=== PATIENT | female | born 1960 | race Caucasian/White ===

== ENCOUNTER 2018-08-16 17:01 | Observation (INO) | payer BC ==
[2018-08-16] MEDS ORDERED: methylPREDNISolone SOD SUCCI 125 MG/2 ML VIAL IV STA (17:15)
[2018-08-16] MEDS ORDERED: MAGNESIUM SULFATE-D5W PMX 1 GM in DEXTROSE/WATER 1 100ML.BAG IVPB STA (17:15)
[2018-08-16] MEDS ORDERED: IPRATROPIUM-ALBUTEROL 3 ML NEB INHALATION STA (17:15)
[2018-08-16] MEDS ORDERED: SODIUM CHLORIDE 0.9% 1,000 ML IV ONE (17:16)
[2018-08-16 17:59] LABS: VBG PH 7.43 (7.31-7.41)
[2018-08-16] MEDS: SODIUM CHLORIDE 0.9% 1,000 ML IV SCH (18:02)
--- NOTE | 2018-08-16 18:08 | ED ---
SOB HPI - General Chief Complaint: Shortness of Breath Stated Complaint: SOB Time Seen by Provider: 08/16/18 17:10 Source: patient, RN notes reviewed, old records reviewed Mode of arrival: ambulatory Limitations: no limitations - History of Present Illness Initial Comments: Patient is a 57-year-old female presents emergency department today with acute r espiratory distress. Patient was sent in by Dr. Fletcher for admission. Apparently Patient cannot take oral steroids. She frequently is admitted for acute asthma exacerbations. Patient has audible wheezing noted upon while entering the exam room. She states her symptoms have been going on for 3 days. She denies any fever or chills. She states that she's had a nonproductive cough. Patient has had no associated chest pain, denies any nausea or vomiting. - Related Data Home Medications Medication Instructions Recorded Confirmed Albuterol Inhaler [Ventolin Hfa 1 - 2 puff INHALATION RT-Q6H PRN 08/16/18 08/16/18 Inhaler] Albuterol Nebulized [Ventolin 2.5 mg INHALATION RT-QID PRN 08/16/18 08/16/18 Nebulized] Ergocalciferol (Vitamin D2) 50,000 unit PO Q7D 08/16/18 08/16/18 [Vitamin D2] Fexofenadine HCl [Rachel Allergy] 180 mg PO DAILY 08/16/18 08/16/18 Fluticasone/Salmeterol [Advair 1 puff INHALATION RT-BID 08/16/18 08/16/18 250-50 Diskus] Lisinopril [Zestril] 20 mg PO DAILY 08/16/18 08/16/18 Montelukast [Singulair] 10 mg PO DAILY 08/16/18 08/16/18 Allergies Allergy/AdvReac Type Severity Reaction Status Date / Time codeine Allergy Unknown Verified 08/16/18 18:04 latex Allergy Swelling Verified 08/16/18 18:04 Penicillins Allergy Unknown Verified 08/16/18 18:04 Sulfa (Sulfonamide Allergy Unknown Verified 08/16/18 18:04 Antibiotics) prednisone AdvReac Unknown Verified 08/16/18 18:04 Review of Systems ROS Statement: Those systems with pertinent positive or pertinent negative responses have been documented in the HPI. ROS Other: All systems not noted in ROS Statement are negative. Past Medical History Past Medical History: Asthma Additional Past Medical History / Comment(s): pancreatitis History of Any Multi-Drug Resistant Organisms: None Reported Past Surgical History: No Surgical Hx Reported Past Psychological History: No Psychological Hx Reported Smoking Status: Never smoker Past Alcohol Use History: None Reported Past Drug Use History: None Reported General Exam - General Exam Comments Initial Comments: 57-year-old female. Alert and oriented. Respiratory distress, audible wheezing noted Limitations: no limitations General appearance: alert, in no apparent distress Head exam: Present: atraumatic, normocephalic, normal inspection Eye exam: Present: normal appearance, PERRL, EOMI. Absent: scleral icterus, conjunctival injection, periorbital swelling ENT exam: Present: normal exam, mucous membranes moist Neck exam: Present: normal inspection. Absent: tenderness, meningismus, lymphadenopathy Respiratory exam: Present: wheezes (Audible wheezing from the entry of the room.). Absent: normal lung sounds bilaterally, respiratory distress, rales, rhonchi, stridor Cardiovascular Exam: Present: regular rate, normal rhythm, normal heart sounds. Absent: systolic murmur, diastolic murmur, rubs, gallop, clicks GI/Abdominal exam: Present: soft, normal bowel sounds. Absent: distended, tenderness, guarding, rebound, rigid Extremities exam: Present: normal inspection, full ROM, normal capillary refill. Absent: tenderness, pedal edema, joint swelling, calf tenderness Back exam: Present: normal inspection Neurological exam: Present: alert, oriented X3, CN II-XII intact Course Vital Signs 08/16/18 08/16/18 08/16/18 17:01 17:24 17:38 Temperature 97.9 F Pulse Rate 78 77 73 Respiratory 22 Rate Blood Pressure 129/77 O2 Sat by Pulse 98 Oximetry 08/16/18 18:00 Temperature Pulse Rate 91 Respiratory 24 Rate Blood Pressure 135/81 O2 Sat by Pulse 94 L Oximetry - Reevaluation(s) Reevaluation #1: 08/16/18 18:45 Patient is improved after 3 to continue his DuoNeb treatments and Solu-Medrol. Patient continues to have some wheezing. Gillian the Patient at this time. Medical Decision Making - Medical Decision Making 57-year-old male presents to ED with complaints of difficulty in breathing, a sthma exacerbation for 3 days. She has audible wheezing noted on exam. Patient was given a stat hour long DuoNeb treatment. Started on steroids and magnesium. She does have improvement after reevaluation but continues to wheeze. Patient's wrist torus status upon arrival will admit her with consult to Dr. Fletcher. - Lab Data Result diagrams: 08/16/18 17:40 08/16/18 17:40 Lab Results 08/16/18 08/16/18 08/16/18 Range/Units 17:40 17:40 17:40 WBC 8.3 (3.8-10.6) k/uL RBC 5.23 (3.80-5.40) m/uL Hgb 16.0 (11.4-16.0) gm/dL Hct 48.8 H (34.0-46.0) % MCV 93.3 (80.0-100.0) fL MCH 30.5 (25.0-35.0) pg MCHC 32.7 (31.0-37.0) g/dL RDW 13.5 (11.5-15.5) % Plt Count 263 (150-450) k/uL VBG pH 7.43 H (7.31-7.41) VBG pCO2 33 L (37-51) mmHg VBG HCO3 21 L (24-28) mmol/L Sodium 141 (137-145) mmol/L Potassium 4.9 (3.5-5.1) mmol/L Chloride 110 H (98-107) mmol/L Carbon Dioxide 20 L (22-30) mmol/L Anion Gap 11 mmol/L BUN 19 H (7-17) mg/dL Creatinine 0.69 (0.52-1.04) mg/dL Est GFR (CKD-EPI)AfAm >90 (>60 ml/min/1.73 sqM) Est GFR (CKD-EPI)NonAf >90 (>60 ml/min/1.73 sqM) Glucose 80 (74-99) mg/dL Calcium 9.6 (8.4-10.2) mg/dL Magnesium 2.3 (1.6-2.3) mg/dL Total Bilirubin 0.6 (0.2-1.3) mg/dL AST 37 H (14-36) U/L ALT 24 (9-52) U/L Alkaline Phosphatase 66 (38-126) U/L Total Protein 7.9 (6.3-8.2) g/dL Albumin 4.4 (3.5-5.0) g/dL Disposition Clinical Impression: Asthma exacerbation Disposition: ADMITTED IP TO THIS HOSP Condition: Stable Is patient prescribed a controlled substance at d/c from ED?: No Referrals: Pablo Mar MD [Primary Care Provider] - 1-2 days Time of Disposition: 18:46
[2018-08-16 18:11] LABS: ALT 24 U/L (9-52); AST 37 U/L (14-36); Albumin 4.4 g/dL (3.5-5.0); Alkaline Phosphatase 66 U/L (38-126); Anion Gap 11 mmol/L; Blood Urea Nitrogen 19 mg/dL (7-17); Calcium 9.6 mg/dL (8.4-10.2); Carbon Dioxide 20 mmol/L (22-30); Chloride 110 mmol/L (98-107); Glucose 80 mg/dL (74-99); Magnesium 2.3 mg/dL (1.6-2.3); Potassium 4.9 mmol/L (3.5-5.1); Sodium 141 mmol/L (137-145); Total Bilirubin 0.6 mg/dL (0.2-1.3); Total Protein 7.9 g/dL (6.3-8.2)
--- NOTE | 2018-08-16 18:23 | XR ---
EXAMINATION TYPE: XR chest 2V DATE OF EXAM: 08/16/2018 COMPARISON: 06/15/2013 HISTORY: Short of breath TECHNIQUE: Frontal and lateral views of the chest are obtained. FINDINGS: There is some elevation of the right diaphragm with linear density in the right lower lobe . There is no heart failure. Heart size is normal. There are chest leads. IMPRESSION: Minimal subsegmental atelectasis. There is clearing of some atelectasis left lung base c ompared to old exam. Normal heart.
[2018-08-16 18:27] LABS: HCT 48.8 % (34.0-46.0); MCH 30.5 pg (25.0-35.0); MCHC 32.7 g/dL (31.0-37.0); MCV 93.3 fL (80.0-100.0); Mean Platelet Volume 6.7; Platelet Count 263 k/uL (150-450); RBC 5.23 m/uL (3.80-5.40); RDW 13.5 % (11.5-15.5); WBC 8.3 k/uL (3.8-10.6)
[2018-08-16] MEDS ORDERED: ALBUTEROL NEBULIZED 2.5 MG/3 ML INHALATION PRN (18:49)
[2018-08-16 19:27] LABS: Eosinophils # (M) 0.75 k/uL (0-0.7); Lymphocytes # (M) 2.57 k/uL (1.0-4.8); Monocytes # (M) 0.42 k/uL (0-1.0); Neutrophils # (M) 4.57 k/uL (1.3-7.7); Neutrophils % (M) 55 %; Nucleated Red Blood Cells 0 /100 WBC (0-0); Total Cells Counted 100
[2018-08-16 19:29] LABS: Poikilocytosis (M) Present
[2018-08-16 21:01] LABS: Glucose,Whole Blood 112 mg/dL (75-99)
[2018-08-16] MEDS: SYMBICORT 80-4.5 MCG INHALER INHALATION SCH (21:08)
[2018-08-16] MEDS: INSULIN ASPART (NovoLOG) 100 UNIT/ML VIAL SQ SCH (21:17)
[2018-08-16] MEDS: guaiFENesin 600 MG TABLET.ER PO SCH (21:47)
[2018-08-16 22:07] VITALS: BMI 32.5
[2018-08-16] MEDS: methylPREDNISolone SOD SUCCI 125 MG/2 ML VIAL IV SCH (23:35)
[2018-08-17] MEDS: SODIUM CHLORIDE 0.9% 1,000 ML IV SCH ×2 (00:17→12:34)
[2018-08-17] MEDS: methylPREDNISolone SOD SUCCI 125 MG/2 ML VIAL IV SCH ×3 (06:12→17:14)
[2018-08-17 07:00] LABS: Glucose,Whole Blood 181 mg/dL (75-99)
[2018-08-17] MEDS: guaiFENesin 600 MG TABLET.ER PO SCH ×2 (07:25→21:26)
[2018-08-17] MEDS: LISINOPRIL 20 MG TAB PO SCH (07:25)
[2018-08-17] MEDS: INSULIN ASPART (NovoLOG) 100 UNIT/ML VIAL SQ SCH ×4 (07:26→21:26)
[2018-08-17] MEDS: MONTELUKAST 10 MG TAB PO SCH (07:26)
[2018-08-17] MEDS: LORATADINE 10 MG TAB PO SCH (07:26)
[2018-08-17] MEDS: IPRATROPIUM-ALBUTEROL 3 ML NEB INHALATION PRN ×2 (08:15→11:27)
[2018-08-17] MEDS: SYMBICORT 80-4.5 MCG INHALER INHALATION SCH ×2 (08:15→19:55)
[2018-08-17 11:43] LABS: Glucose,Whole Blood 98 mg/dL (75-99)
--- NOTE | 2018-08-17 13:38 | P.CNPUL ---
History of Present Illness Consult date: 08/17/18 Requesting physician: Pablo Mar Reason for consult: dyspnea, asthma Chief complaint: Shortness of breath, chest tightness, wheezing History of present illness: This is a very pleasant 57-year-old female patient who follows with Dr. Patel as her primary care physician. She has a history of hypertension, pancreatitis. She is a lifelong nonsmoker. She follows with Dr. Fletcher in our office for moderate persistent chronic bronchial asthma mostly allergen related. She presented here to the emergency room yesterday from our office with complaints of increasing shortness of breath, chest tightness and wheezing. She is intolerant to oral prednisone due to her pancreatitis. She is maintained on Advair, Singulair, albuterol, Rachel. She feels her asthma is triggered by spring ALLERGIES. She is seen today in consultation on the regular medical floor. She is awake and alert in no acute distress. She is still quite bronchospastic and wheezy. Dyspneic with minimal exertion. She is maintaining good O2 saturations in the 90s on 3 L/m per nasal cannula. She's been afebrile. Hemodynamically stable. Chest x-ray shows minimal subsegmental atelectasis otherwise no clear evidence of pneumonia or heart failure. White count 8.3. Hemoglobin 16.0. Bicarb 20, creatinine 0.69. She's been initiated on DuoNeb inhalations, IV Solu-Medrol, Symbicort and Claritin. Review of Systems REVIEW OF SYSTEMS: CONSTITUTIONAL: Denies any recent significant weight loss or weight gain. EYES: Denies change in vision. EARS, NOSE, MOUTH, THROAT: Denies headaches, denies sore throat. CARDIOVASCULAR: Denies chest pain, palpitations or syncopal episodes. RESPIRATORY: Positive for shortness of breath, cough, congestion no hemoptysis. GASTROINTESTINAL: Slight nausea. Denies change in appetite, denies abdominal pain GENITOURINARY: Denies hematuria, denies infections. MUSKULOSKELETAL: Denies pain, denies swelling. INTEGUMENTARY: Denies rash, denies eczema. NEUROLOGICAL: Denies recent memory loss, no recent seizure activity. PSYCHIATRIC: Denies anxiety, denies depression. HEMATOLOGIC/LYMPHATIC: Denies anemia, denies enlarged lymph nodes. Past Medical History Past Medical History: Asthma, Hypertension Additional Past Medical History / Comment(s): pancreatitis History of Any Multi-Drug Resistant Organisms: None Reported Past Surgical History: No Surgical Hx Reported Past Psychological History: No Psychological Hx Reported Smoking Status: Never smoker Past Alcohol Use History: None Reported Additional Past Alcohol Use History / Comment(s): Patient is a lifelong nonsmoker. Past Drug Use History: None Reported - Past Family History Father Family Medical History: CVA/TIA Mother Family Medical History: CVA/TIA Medications and Allergies Home Medications Medication Instructions Recorded Confirmed Type Albuterol Inhaler [Ventolin Hfa 1 - 2 puff INHALATION RT-Q6H PRN 08/16/18 08/16/18 History Inhaler] Albuterol Nebulized [Ventolin 2.5 mg INHALATION RT-QID PRN 08/16/18 08/16/18 History Nebulized] Ergocalciferol (Vitamin D2) 50,000 unit PO Q7D 08/16/18 08/16/18 History [Vitamin D2] Fexofenadine HCl [Rachel Allergy] 180 mg PO DAILY 08/16/18 08/16/18 History Fluticasone/Salmeterol [Advair 1 puff INHALATION RT-BID 08/16/18 08/16/18 History 250-50 Diskus] Lisinopril [Zestril] 20 mg PO DAILY 08/16/18 08/16/18 History Montelukast [Singulair] 10 mg PO DAILY 08/16/18 08/16/18 History Allergies Allergy/AdvReac Type Severity Reaction Status Date / Time codeine Allergy Unknown Verified 08/16/18 18:04 latex Allergy Swelling Verified 08/16/18 18:04 Penicillins Allergy Unknown Verified 08/16/18 18:04 Sulfa (Sulfonamide Allergy Unknown Verified 08/16/18 18:04 Antibiotics) prednisone AdvReac Unknown Verified 08/16/18 18:04 Physical Exam Vitals: Vital Signs Temp Pulse Pulse Resp BP BP Pulse Ox 08/17/18 11:40 88 08/17/18 11:29 84 08/17/18 08:32 92 08/17/18 08:20 88 08/17/18 04:37 97.6 F 81 18 136/84 94 L 08/16/18 21:06 97.7 F 77 17 148/93 95 08/16/18 20:31 97.8 F 81 18 119/72 97 08/16/18 19:00 97.8 F 81 18 123/73 96 08/16/18 18:00 91 24 135/81 94 L 08/16/18 17:38 73 08/16/18 17:24 77 08/16/18 17:01 97.9 F 78 22 129/77 98 Intake and Output 08/16/18 08/17/18 08/17/18 22:59 06:59 14:59 Other: # Voids 2 3 Weight 81.5 kg GENERAL EXAM: Alert, active, comfortable in no apparent distress. HEAD: Face is flushed. Normocephalic. EYES: Normal reaction of pupils, equal size. NOSE: Clear with pink turbinates. THROAT: No erythema or exudates. NECK: No masses, no JVD. CHEST: No chest wall deformity. LUNGS: Equal air entry with bilateral end expiratory wheeze CVS: S1 and S2 normal with no audible murmur, regular rhythm. ABDOMEN: No hepatosplenomegaly, normal bowel sounds, no guarding or rigidity. SPINE: No scoliosis or deformity SKIN: No rashes CENTRAL NERVOUS SYSTEM: No focal deficits, tone is normal in all 4 extremities. EXTREMITIES: There is no peripheral edema. No clubbing, no cyanosis. Peripheral pulses are intact. Results - Laboratory Findings CBC and BMP: 08/16/18 17:40 08/16/18 17:40 Abnormal lab findings: Abnormal Labs 08/16/18 08/16/18 08/16/18 17:40 17:40 17:40 Hct 48.8 H Eosinophils # (Manual) 0.75 H VBG pH 7.43 H VBG pCO2 33 L VBG HCO3 21 L Chloride 110 H Carbon Dioxide 20 L BUN 19 H POC Glucose (mg/dL) AST 37 H 08/16/18 08/17/18 21:00 06:57 Hct Eosinophils # (Manual) VBG pH VBG pCO2 VBG HCO3 Chloride Carbon Dioxide BUN POC Glucose (mg/dL) 112 H 181 H AST - Diagnostic Findings Chest x-ray: image reviewed Assessment and Plan Assessment: Impression: #1 Acute exacerbation of moderate persistent chronic bronchial asthma. #2 Hypertension. #3 History of pancreatitis exacerbated by oral prednisone. Plan: The patient was seen and evaluated by Dr. Montoya. Chest x-ray and labs reviewed. We'll continue the current treatment plan including IV Solu-Medrol, DuoNeb inhalations, Symbicort, Claritin. We will increase her activity as tolerated. We'll continue to follow and make further recommendations based on her clinical status. I, the cosigning physician, performed a history & physical examination of the patient. Lungs sounds with bilateral end expiratory wheeze, diminished. Maintaining good O2 saturations in the 90s on 3 L/m per nasal cannula. I discussed the assessment and plan of care with my nurse practitioner, Caroline Schwartz. I attest to the above note as dictated by her. Time with Patient: Greater than 30
[2018-08-17] MEDS: IPRATROPIUM-ALBUTEROL 3 ML NEB INHALATION SCH ×2 (15:51→19:55)
--- NOTE | 2018-08-17 16:07 | P.HPIM ---
History of Present Illness H&P Date: 08/17/18 Chief Complaint: Difficulty in breathing This is a 57-year-old female patient of Dr. Mar and Dr. Fletcher with past medical history of hypertension, seasonal ALLERGIES, moderate persistent asthma. Patient has had symptoms for the last 3 days with shortness of breath and cough. She has also been having wheezing. Patient has significant anxiety and history of PTSD after hospitalization in the past. She has unable to tolerate any oral steroids. Patient came into [facility] emergency center for evaluation. She was afebrile, heart rate 70s, blood pressure 129/77 pulse ox 90% on room air. White count was normal at 8.3, hemoglobin 16.0. Creatinine 0.69, AST 37. Venous blood gas showed a pH of 7.43, pCO2 33, bicarb 21. Chest x-ray shows minimal subsegmental atelectasis. Clearing of some atelectasis of left lung base compared to old exam from 2014. Patient was started on IV Solu-Medrol, 1 L of IV fluids magnesium replacement and DuoNeb treatments [facility] Consult has been requested with pulmonary medicine. Review of Systems All systems: negative Constitutional: Denies anorexia, Denies chills, Denies fatigue, Denies fever, Denies lethargy, Denies poor appetite, Denies weakness, Denies weight loss Eyes: denies blurred vision, denies pain Ears, nose, mouth and throat: Denies headache, Denies sore throat Cardiovascular: Reports decreased exercise tolerance, Reports dyspnea on exertion, Denies chest pain, Denies edema, Denies leg edema, Denies lightheadedness, Denies orthopnea, Denies shortness of breath, Denies syncope Respiratory: Reports cough, Reports cough with sputum, Reports dyspnea, Reports wheezing, Denies excessive sputum, Denies hemoptysis, Denies home oxygen Gastrointestinal: Denies abdominal pain, Denies diarrhea, Denies loss of appetite, Denies nausea, Denies vomiting Genitourinary: Denies dysuria, Denies hematuria Musculoskeletal: Denies frequent falls, Denies gait dysfunction, Denies muscle weakness, Denies myalgias Integumentary: Denies pruritus, Denies rash, Denies wounds Neurological: Denies aphasia, Denies change in mentation, Denies change in speech, Denies headaches, Denies numbness, Denies seizures, Denies vertigo, Denies weakness Psychiatric: Denies anxiety, Denies depression Endocrine: Denies fatigue, Denies weight change Past Medical History Past Medical History: Asthma, Hypertension Additional Past Medical History / Comment(s): pancreatitis History of Any Multi-Drug Resistant Organisms: None Reported Past Surgical History: No Surgical Hx Reported Past Psychological History: No Psychological Hx Reported Smoking Status: Never smoker Past Alcohol Use History: None Reported Additional Past Alcohol Use History / Comment(s): Patient is a lifelong nonsmoker. Past Drug Use History: None Reported - Past Family History Father Family Medical History: CVA/TIA Mother Family Medical History: CVA/TIA Medications and Allergies Home Medications Medication Instructions Recorded Confirmed Type Albuterol Inhaler [Ventolin Hfa 1 - 2 puff INHALATION RT-Q6H PRN 08/16/18 08/16/18 History Inhaler] Albuterol Nebulized [Ventolin 2.5 mg INHALATION RT-QID PRN 08/16/18 08/16/18 History Nebulized] Ergocalciferol (Vitamin D2) 50,000 unit PO Q7D 08/16/18 08/16/18 History [Vitamin D2] Fexofenadine HCl [Rachel Allergy] 180 mg PO DAILY 08/16/18 08/16/18 History Fluticasone/Salmeterol [Advair 1 puff INHALATION RT-BID 08/16/18 08/16/18 History 250-50 Diskus] Lisinopril [Zestril] 20 mg PO DAILY 08/16/18 08/16/18 History Montelukast [Singulair] 10 mg PO DAILY 08/16/18 08/16/18 History Allergies Allergy/AdvReac Type Severity Reaction Status Date / Time codeine Allergy Unknown Verified 08/16/18 18:04 latex Allergy Swelling Verified 08/16/18 18:04 Penicillins Allergy Unknown Verified 08/16/18 18:04 Sulfa (Sulfonamide Allergy Unknown Verified 08/16/18 18:04 Antibiotics) prednisone AdvReac Unknown Verified 08/16/18 18:04 Physical Exam Vitals: Vital Signs Temp Pulse Pulse Resp BP BP Pulse Ox 08/17/18 08:32 92 08/17/18 08:20 88 05/07/19 04:37 97.6 F 81 18 136/84 94 L 08/16/18 21:06 97.7 F 77 17 148/93 95 08/16/18 20:31 97.8 F 81 18 119/72 97 08/16/18 19:00 97.8 F 81 18 123/73 96 08/16/18 18:00 91 24 135/81 94 L 08/16/18 17:38 73 08/16/18 17:24 77 08/16/18 17:01 97.9 F 78 22 129/77 98 Intake and Output 08/16/18 08/17/18 08/17/18 22:59 06:59 14:59 Other: # Voids 2 3 Weight 81.5 kg Gen: This is a 57-year-old female. She is resting in bed and appears to be comfortable and in no acute distress. HEENT: Head is atraumatic, normocephalic. Pupils equal, round. Sclerae is anicteric. NECK: Supple. No JVD. No lymphadenopathy. No thyromegaly. LUNGS: Bilateral expiratory wheeze. No intercostal retractions. HEART: Regular rate and rhythm. No murmur. ABDOMEN: Soft. Bowel sounds are present. No masses. No tenderness. EXTREMITIES: No pedal edema. No calf tenderness. NEUROLOGICAL: Patient is awake, alert and oriented x3. Cranial nerves 2 through 12 are grossly intact. Results CBC & Chem 7: 08/16/18 17:40 08/16/18 17:40 Labs: Abnormal Lab Results - Last 24 Hours (Table) 08/16/18 08/16/18 08/16/18 Range/Units 17:40 17:40 17:40 Hct 48.8 H (34.0-46.0) % Eosinophils # (Manual) 0.75 H (0-0.7) k/uL VBG pH 7.43 H (7.31-7.41) VBG pCO2 33 L (37-51) mmHg VBG HCO3 21 L (24-28) mmol/L Chloride 110 H (98-107) mmol/L Carbon Dioxide 20 L (22-30) mmol/L BUN 19 H (7-17) mg/dL POC Glucose (mg/dL) (75-99) mg/dL AST 37 H (14-36) U/L 08/16/18 08/17/18 Range/Units 21:00 06:57 Hct (34.0-46.0) % Eosinophils # (Manual) (0-0.7) k/uL VBG pH (7.31-7.41) VBG pCO2 (37-51) mmHg VBG HCO3 (24-28) mmol/L Chloride (98-107) mmol/L Carbon Dioxide (22-30) mmol/L BUN (7-17) mg/dL POC Glucose (mg/dL) 112 H 181 H (75-99) mg/dL AST (14-36) U/L Thrombosis Risk Factor Assmnt - DVT/VTE Prophylaxis DVT/VTE Prophylaxis: Pharmacologic Prophylaxis ordered - Choose All That Apply Any of the Below Risk Factors Present?: Yes Each Factor Represents 1 point: Age 41-60 years, Obesity (BMI >25) Other Risk Factors: No Other congenital or acquired thrombophilia - If yes, enter type in comment: No Thrombosis Risk Factor Assessment Total Risk Factor Score: 2 Thrombosis Risk Factor Assessment Level: Low Risk Assessment and Plan Plan: 1. Acute asthma exacerbation with moderate persistent asthma. Consult with Dr. Lindsay infante. Continue Solu-Medrol 60 mg IV every 6 hours, singular 10 mg daily, Claritin 10 mg daily, DuoNeb treatments every 4 hours as needed, Symbicort twice daily, Mucinex twice daily. 2. Seasonal ALLERGIES. Continue as above. 3. Hypertension. Continue lisinopril 20 mg daily. 4. GI prophylaxis. Pepcid. 5. DVT prophylaxis. Lovenox. 6. PTSD with generalized anxiety disorder and most likely recurrent depression, patient has refused treatment. Patient will be admitted to the hospital for a minimum of 2 night stay. Discharge plan: Return home Impression and plan of care have been directed as dictated by the signing physician. Clover Cunha nurse practitioner acting as scribe for signing physician.
[2018-08-17 16:40] LABS: Glucose,Whole Blood 158 mg/dL (75-99)
[2018-08-17 20:22] LABS: Glucose,Whole Blood 175 mg/dL (75-99)
[2018-08-18] MEDS: methylPREDNISolone SOD SUCCI 125 MG/2 ML VIAL IV SCH ×3 (00:03→12:10)
[2018-08-18] MEDS ORDERED: ARTIFICIAL TEARS-HYPROMELLOSE DROPS 15 ML BTL BOTH EYES PRN (02:06)
[2018-08-18] MEDS: SYMBICORT 80-4.5 MCG INHALER INHALATION SCH (07:09)
[2018-08-18] MEDS: IPRATROPIUM-ALBUTEROL 3 ML NEB INHALATION SCH ×2 (07:09→10:38)
[2018-08-18 07:16] LABS: Glucose,Whole Blood 117 mg/dL (75-99)
[2018-08-18] MEDS: INSULIN ASPART (NovoLOG) 100 UNIT/ML VIAL SQ SCH ×2 (07:41→12:10)
[2018-08-18] MEDS: MONTELUKAST 10 MG TAB PO SCH (08:08)
[2018-08-18] MEDS: LORATADINE 10 MG TAB PO SCH (08:08)
[2018-08-18] MEDS: guaiFENesin 600 MG TABLET.ER PO SCH (08:08)
[2018-08-18] MEDS: LISINOPRIL 20 MG TAB PO SCH (08:08)
[2018-08-18] MEDS: ENOXAPARIN 40 MG/0.4 ML SYRINGE SQ SCH ×2 (08:08→08:13)
[2018-08-18] MEDS ORDERED: FAMOTIDINE 20 MG TAB PO SCH (09:00)
[2018-08-18 11:24] LABS: Glucose,Whole Blood 150 mg/dL (75-99)
[2018-08-18 13:42] VITALS: BP 138/84; PULSE 77; RESP 16; TEMP 98.4
--- NOTE | 2018-08-18 14:55 | P.PN ---
Subjective Progress Note Date: 08/18/18 Principal diagnosis: Acute exacerbation of moderate persistent asthma. This is a very pleasant 57-year-old female patient who follows with Dr. Mar as her primary care physician. She has a history of hypertension, pancreatitis. She is a lifelong nonsmoker. She follows with Dr. Fletcher in our office for moderate persistent chronic bronchial asthma mostly allergen related. She presented here to the emergency room yesterday from our office with complaints of increasing shortness of breath, chest tightness and wheezing. She is intolerant to oral prednisone due to her pancreatitis. She is maintained on Advair, Singulair, albuterol, Rachel. She feels her asthma is triggered by spring ALLERGIES. She is seen today in consultation on the regular medical floor. She is awake and alert in no acute distress. She is still quite bronchospastic and wheezy. Dyspneic with minimal exertion. She is maintaining good O2 saturations in the 90s on 3 L/m per nasal cannula. She's been afebrile. Hemodynamically stable. Chest x-ray shows minimal subsegmental atelectasis o therwise no clear evidence of pneumonia or heart failure. White count 8.3. Hemoglobin 16.0. Bicarb 20, creatinine 0.69. She's been initiated on DuoNeb inhalations, IV Solu-Medrol, Symbicort and Claritin. The patient was seen today the Aug 18 2018 in follow-up on the regular medical floor. She's been up ambulating in the [place]. Awake and alert in no acute distress. She is breathing quite a bit better today as compared to yesterday. She does have some mild end expiratory wheeze. Maintaining good O2 saturations in the 90s on room air. She's been afebrile. Maintained on IV Cymetra, Symbi donny, DuoNeb's. She is anxious to go home. Objective - Vital Signs Vital signs: Vital Signs Temp 98.4 F 08/18/18 13:19 Pulse 77 08/18/18 13:19 Resp 16 08/18/18 13:19 BP 138/84 08/18/18 13:19 Pulse Ox 95 08/18/18 13:19 Intake & Output 08/17/18 08/18/18 08/18/18 18:59 06:59 18:59 Intake Total 160 Balance 160 Intake: Intake, IV Titration 160 Amount Sodium Chloride 0.9% 1, 160 000 ml @ 100 mls/hr IV . Q10H ERIC Rx#:[id number] Other: # Voids 3 1 # Bowel Movements 0 0 - Exam GENERAL EXAM: Alert, active, comfortable in no apparent distress. HEAD: Normocephalic. EYES: Normal reaction of pupils, equal size. NOSE: Clear with pink turbinates. THROAT: No erythema or exudates. NECK: No masses, no JVD. CHEST: No chest wall deformity. LUNGS: Equal air entry with faint end expiratory wheeze. CVS: S1 and S2 normal with no audible murmur, regular rhythm. ABDOMEN: No hepatosplenomegaly, normal bowel sounds, no guarding or rigidity. SPINE: No scoliosis or deformity SKIN: No rashes CENTRAL NERVOUS SYSTEM: No focal deficits, tone is normal in all 4 extremities. EXTREMITIES: There is no peripheral edema. No clubbing, no cyanosis. Peripheral pulses are intact. - Labs CBC & Chem 7: 08/16/18 17:40 08/16/18 17:40 Labs: Abnormal Lab Results - Last 24 Hours (Table) 08/17/18 08/17/18 08/18/18 Range/Units 16:38 20:20 07:08 POC Glucose (mg/dL) 158 H 175 H 117 H (75-99) mg/dL 08/18/18 Range/Units 11:09 POC Glucose (mg/dL) 150 H (75-99) mg/dL Microbiology - Last 24 Hours (Table) 08/16/18 17:40 Blood Culture - Preliminary Blood No Growth after 24 hours Assessment and Plan Assessment: Impression: #1 Acute exacerbation of moderate persistent chronic bronchial asthma. #2 Hypertension. #3 History of pancreatitis exacerbated by oral prednisone. Plan: The patient was seen and evaluated by Dr. Montoya. She is cleared for discharge from the pulmonary standpoint. Again, she is intolerant to prednisone. She will return to our office for a Depo-Medrol injection if needed. Continue her home pulmonary medications. Follow up with Dr. Fletcher in our office in 1-2 weeks' time. She and her are both encouraged to call sooner with any recurrence of symptoms or other questions or concerns. I, the cosigning physician, performed a history & physical examination of the patient. Lungs sounds with faint end expiratory wheeze. Maintaining good O2 saturations in the 90s on room air. I discussed the assessment and plan of care with my nurse practitioner, Caroline Schwartz. I attest to the above note as dictated by her.
[2018-08-22] MEDS ORDERED: ERGOCALCIFEROL 50,000 UNIT CAP PO SCH (09:00)
== END 2018-08-18 13:31 | disposition home or self-care (01) ==
LOC: EC 17:01 → 4MS4W 19:28
PROVIDERS: ADMIT Internal Medicine; ATTEND Internal Medicine
DX: J45.41 Moderate persistent asthma with (acute) exacerbation (principal); I10 Essential (primary) hypertension; F33.9 Major depressive disorder, recurrent, unspecified; F41.1 Generalized anxiety disorder; F43.10 Post-traumatic stress disorder, unspecified; Z87.19 Personal history of other diseases of the digestive system; Z79.899 Other long term (current) drug therapy; Z79.51 Long term (current) use of inhaled steroids; Z88.5 Allergy status to narcotic agent; Z88.0 Allergy status to penicillin; Z88.2 Allergy status to sulfonamides; Z88.8 Allergy status to other drugs, medicaments and biological substances; Z91.040 Latex allergy status
CPT/HCPCS: 96376 ×3; 96361 ×2; 96365; 96375; 99285; 36415; 94640 ×4; 94644; 93005; 80053; 82803; 83735; 85025; 87040; 71046; G0378 ×3; J2930 ×3; J3475

== ENCOUNTER → 2020-11-15 | Outpatient (CLI) | payer MEDICARE ==
[~2020-11-15] MED LIST: DOBUTamine DRIP for NUC MED 500 MG in DEXTROSE/WATER 1 250ML.BAG IV PRN
--- NOTE | 2020-11-15 15:41 | ECHOS ---
STRESS ECHOCARDIOGRAM DATE OF SERVICE: 11/15/20 INDICATIONS: Chest pain BASELINE HEART RATE: 68 BASELINE BLOOD PRESSURE: 138/81 MAXIMUM HEART RATE: 133 MAXIMUM BLOOD PRESSURE: 206/48 85% MPHR: 134 100% MPHR: 158 METS: NA MAXIMUM STAGE REACHED: NA TOTAL EXERCISE TIME: NA RESULTS: Baseline rhythm is a sinus mechanism, rate of 68, borderline right axis deviation. Nonspecific ST-T wave changes. Baseline blood pressure 138/81 mmHg. Patient received infusion of dobutamine per protocol subsequently 0.5 mg of intravenous atropine. Peak heart rate 133 beats per minute. Peak blood pressure 206/48 minute Hg. Electrocardiographic monitoring revealed no evidence of diagnostic ischemic ST deviation. FINDINGS: Baseline echocardiogram revealed normal wall thickening and motion. At peak infusion, there was normal wall motion augmentation with no hypokinesis or dyskinesis. CONCLUSION: 1. Normal electrocardiograph sounds response to dobutamine infusion. 2. Normal stress echocardiogram with no evidence of stress-induced ischemia. MMODL / IJN: [id number] /
== END | disposition home or self-care (01) ==
LOC: RADNMMAIN 10:02
PROVIDERS: ATTEND Internal Medicine
DX: R07.9 Chest pain, unspecified (principal)
CPT/HCPCS: 93351; J1250

== ENCOUNTER → 2024-06-03 | Outpatient (CLI) | payer MEDICARE ==
--- NOTE | 2024-06-03 16:49 | NM ---
EXAMINATION TYPE: NM hepatobiliary w EF DATE OF EXAM: 06/03/2024 COMPARISON: NONE INDICATION: Right upper quadrant pain TECHNIQUE: After the intravenous administration of 3.9 mCi Tc 99m Mebrofenin hepatobiliary scintigrap hy is performed. Images were obtained immediately post injection. FINDINGS: There is prompt uptake and excretion of radiotracer by the liver. Extrahepatic ducts are identified at 4 minutes. The gallbladder is visualized within 2 minutes. Small bowel activity is noted within 22 minutes. At one hour 8 ounces of oral ensure plus is given to mimic CCK and gallbladder ejection fraction is c alculated at 76 %, which is in the normal range. (Normal >35% and <80%.). IMPRESSION: 1. Normal hepatobiliary scan [facility] Noris Carey, , 06/03/2024 4:47 PM
== END | disposition home or self-care (01) ==
LOC: RADNMMAIN 12:44
PROVIDERS: ATTEND Internal Medicine
DX: R10.11 Right upper quadrant pain (principal)
CPT/HCPCS: 78226; A9537